=== PATIENT | female | born 1990 | race American Indian/Alaskan Native ===

== ENCOUNTER 2018-02-13 20:17 | Emergency (ER) | payer SELFPAY ==
[2018-02-13 22:34] LABS: HCG Qualitative,Urine Negative (Negative)
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
[2018-02-14 00:45] VITALS: BP 127/68
[2018-02-14] MEDS ORDERED: PERCOCET 5/325 PO ONE (01:52)
--- NOTE | 2018-02-18 14:15 | Cat Scan Report ---
FINAL REPORT PROCEDURE: CT HEAD/BRAIN WO CON TECHNIQUE: Computerized tomography of the head was performed without contrast material. HISTORY: eye problem COMPARISON: No prior studies are available for comparison. FINDINGS: There is no CT evidence of intracranial mass, hemorrhage, acute territorial infarction, or hydrocephalus. The intracranial arteries are symmetric in density. The globes and orbits are not fully imaged. There may be left-sided proptosis. No acute fracture is seen. The visualized paranasal sinuses and mastoids are aerated. IMPRESSION: No CT evidence of acute intracranial abnormality. Possible left-sided proptosis, not fully imaged. Correlate exam
--- NOTE | 2018-02-18 14:16 | Cat Scan Report ---
FINAL REPORT EXAM: CT ORBIT/EAR/FOSSA WO CON HISTORY: Right eye pain. TECHNIQUE: Unenhanced axial CT images of the facial bones/sinuses were obtained. Sagittal and coronal reformatted images were also obtained. No prior studies are available for comparison. FINDINGS: The bilateral globes are symmetric in appearance, without discrete abnormality. There is no abnormal intraconal or extraconal soft tissue mass or fluid collection. There is trace sinus mucosal thickening at the anterolateral aspect of the left maxillary sinus. The remainder of the paranasal sinuses are clear. There are no air-fluid levels. The visualized bilateral mastoid air cells are clear. There is no fracture identified in the facial bones. The visualized brain parenchyma is within normal limits. IMPRESSION: 1. Normal unenhanced CT appearance of the bilateral orbits and globes. 2. Trace left maxillary sinus mucosal thickening.
== END 2018-02-14 02:30 | disposition short-term general hospital (02) ==
LOC: ED 20:17
DX: H53.131 Sudden visual loss, right eye (principal); R51 Headache; V49.59XA Passenger injured in collision with other motor vehicles in traffic accident, initial encounter; Y93.89 Activity, other specified; Y92.89 Other specified places as the place of occurrence of the external cause; Y99.8 Other external cause status
CPT/HCPCS: 70450; 70480; 81025